=== PATIENT | male | born 1945 | race Caucasian/White ===

== ENCOUNTER 2019-02-09 01:05 | Inpatient (IN) | payer MEDICARE ==
[~2019-02-09] VITALS: Ht 172.7 cm; Wt 79.1 kg
--- NOTE | ~2019-02-09 | CON ---
[address] [address] CONSULTATION Name: DAVID SANTOS Room: [place] [address] ADM IN .R.#: [id number] Admission: 02/09/19 Attend Phys: Fredis Kwon MD Discharge: Date of : 43 Report #: [id number] THIS REPORT FOR: //name// CC: Man Carlotaliliane Kwon DATE OF SERVICE: 02/09/2019 CONSULTING PHYSICIAN: Fredis Holley M.D. REFERRING PHYSICIAN: Fredis Kwon M.D. REASON FOR CONSULTATION: Left ureteral stone. HISTORY OF PRESENT ILLNESS: This is a 73-year-old gentleman who was admitted for severe left flank pain with radiation into his left upper quadrant, has associated nausea, no vomiting, no fevers or chills. A CT scan of the abdomen and pelvis, which revealed a 7 mm proximal left ureteral stone. Urology was consulted for further evaluation. He does have a history of stones that he has passed spontaneously. It has been many years since his last stone. He is unable to control his pains with medicines at home. He has been controlling his pain with IV narcotics here in the hospital. He denies any fevers or chills. No chest pain or shortness of breath. PAST MEDICAL HISTORY: Pancreatitis, [place] with stents, kidney stones, cholecystectomy, partial knee replacement, hypertension, appendectomy, angioplasty, osteoporosis, sleep apnea, and BPH. CURRENT MEDICATIONS: Amlodipine, metoprolol, terazosin, pantoprazole, losartan, aspirin, atorvastatin, potassium chloride, and nitroglycerin. ALLERGIES: LEVAQUIN. FAMILY HISTORY: Negative for kidney stones. SOCIAL HISTORY: Denies alcohol or tobacco use. REVIEW OF SYSTEMS: See HPI. Otherwise, all 14-point review of systems otherwise reviewed and negative. PHYSICAL EXAMINATION: VITAL SIGNS: Temperature is 36.6, heart rate 82, respiratory rate 20, and blood pressure 138/90. GENERAL: He is alert and oriented x3, no apparent distress. HEENT: Normocephalic, atraumatic. NECK: [place] [address] CONSULTATION Name: DAVID SANTOS Room: [address] IN [facility]#: [id number] Admission: 02/09/19 Attend Phys: Fredis Kwon MD Discharge: Date of : 43 Report #: [id number] LUNGS: Clear. HEART: Regular rate and rhythm. ABDOMEN: Soft, nontender, nondistended. BACK: No CVA tenderness. GENITOURINARY: No palpable bladder. EXTREMITIES: No cyanosis, clubbing, edema. NEUROLOGIC: Cranial nerves 2-12 are intact. LABORATORY DATA: White count is 10.9, hemoglobin 13.9, and platelets 178. Chemistry: Sodium is 145, potassium 3.4, BUN 24, and creatinine 1.3. Urine, 2+ blood with 11-20 red blood cells per high power field, and 0-5 white blood cells per high power field. CT scan of the abdomen and pelvis: I reviewed the images. It shows an approximately 7 mm left proximal ureteral stone with hydronephrosis, multiple renal cysts, small 1-2 mm stone in left lower pole of the kidney. ASSESSMENT AND PLAN: A 7 mm left proximal ureteral stone. No sign of infection or renal failure. I reviewed the options in detail with the patient, which include medical expulsive therapy versus ESWL versus ureteroscopy. I described the different options in detail, and the risks and benefits of each. He would like to avoid ureteral stent if at all possible. He does believe that he can control his pain as an outpatient with narcotics. He would like to discharge home and undergo an outpatient ESWL if possible. I recommend obtaining a KUB to confirm the stone is visible. If it is, it would be reasonable for him to be discharged today and undergo ESWL either later this week or next week. He does take a baby aspirin. I recommend he hold that for a week prior to procedure, so we will likely set this up for early next week. If the stone is not visible on KUB, the patient is considering his options and may elect to proceed with ureteroscopy with laser lithotripsy today or tomorrow. We will go ahead and obtain a KUB and make a final plan depending on the results of that. He is undergoing cardiac workup for possible chest pain, but his chest pain has resolved and it was likely pain due to his kidney stone. Thank you for allowing us to participate in the care of this patient. By: 0733 [id number] Holley MD /radha
--- NOTE | ~2019-02-09 | CON ---
[address] [address] CONSULTATION Name: DAVID SANTOS Room: [address] IN .R.#: [id number] Admission: 02/09/19 Attend Phys: Fredis Kwon MD Discharge: 02/09/19 Date of : 43 Report #: [id number] THIS REPORT FOR: //name// CC: Man Kwon REQUESTING PHYSICIAN: Fredis Kwon MD CHIEF COMPLAINT: Chest pain, left lower quadrant pain. HISTORY OF PRESENT ILLNESS: The patient is a 73-year-old man with a history of coronary disease. He had an episode of severe left lower quadrant pain and was diagnosed with a large kidney stone. I am asked to see him because he had some pain in association with his left lower quadrant pain, which radiated up to his left chest. This occurred while he was at rest, actually woke him up out of bed. He denies exertional symptoms. He has been feeling fine prior to his diagnosis of kidney stones. He was not having exertional chest pressure or shortness of breath. It did not feel like his chest pain that he had prior to his PCI. He was admitted for observation and overall his cardiac troponin levels have been normal and his ECG was normal on presentation. PAST MEDICAL HISTORY: Significant for the following: In 2013, he had a PCI to his right coronary artery. He had in 2016 nuclear stress test, which was normal. He was followed by Dr. Norwood in our practice. It was noted that the cardiac catheterization demonstrated minimal disease in his left system. He has normal LV function. He has hypertension, hyperlipidemia. This apparently is not his first kidney stone. He is scheduled for a procedure with Dr. Holley next week. He has a history of pancreatitis, knee replacement, obstructive sleep apnea, hypertension, hyperlipidemia. HOME MEDICATIONS: Amlodipine 10 mg daily, Toprol-XL 50 mg daily, terazosin 5 mg at bedtime, Protonix 40 mg daily, losartan 100/25 mg daily, baby aspirin 81 mg, atorvastatin 20 mg daily, potassium chloride 10 mEq daily, nitroglycerin p.r.n. ALLERGIES: HE HAS ALLERGIES TO LEVOFLOXACIN. SOCIAL HISTORY: He is a nonsmoker. He is . REVIEW OF SYSTEMS: GENERAL: No fevers or chills. GENITOURINARY: Positive pain with urination, left flank pain. RENAL: No history of kidney failure, although he [place] [address] CONSULTATION Name: DAVID SANTOS ROBERTO Room: [address]#: [id number] Admission: 02/09/19 Attend Phys: Fredis Kwon MD Discharge: 02/09/19 Date of : 43 Report #: [id number] RESPIRATORY: No cough, shortness of breath. PULMONARY: No wheezing or cough. CARDIOVASCULAR: No exertional chest pressure. No exertional neck, jaw discomfort, no shortness of breath with activity. He denies weight gain or edema. HEMATOLOGIC: No anemia or bleeding disorders. SKIN: No rashes. NEUROLOGIC: Denies headaches, blurry vision or slurred speech. PHYSICAL EXAMINATION: VITAL SIGNS: On presentation, his blood pressure is 151/97, this morning his blood pressure is 121/81, pulse is 74. GENERAL: This is a pleasant elderly male who is alert, oriented, no apparent distress, sitting up in bed. HEENT: Unremarkable. Eyes are intact. No facial asymmetry. NECK: Supple. No jugular venous distention. CARDIOVASCULAR: Irregular. I cannot hear a murmur or S3. LUNGS: Clear to auscultation bilaterally. ABDOMEN: Soft, nontender. Palpation of the flank and abdominal area was unremarkable. There was no evidence of discomfort. EXTREMITIES: No peripheral edema. His resting ECG showed a sinus rhythm with normal ST segments. There is a Q-wave in lead 3 and aVF, but normal ST segments. OTHER LABORATORY DATA: His hemoglobin is 13.9, white blood cell count is 10.9, and platelet count is 178,000. Sodium is 145. Potassium was 3.4, he was replaced. Chloride was 104, CO2 is 30, BUN is 24, creatinine is 1.3. AST is 24, ALT is 30. Troponin I is 0.06 x 3 sets. BNP is 137, lipase 110. Chest x-ray shows no acute cardiopulmonary abnormality. Abdominal pelvis CT shows that there is a 5 x 7 mm proximal left ureteral dimension with moderate left hydronephrosis and a 5 x 7 millimeter mm renal stone, in the proximal left ureter. IMPRESSION AND PLAN: 1. Flank pain. This is most likely due to his left-sided ureteral calculus and subsequently referred pain to his chest pain. 2. Referred pain to his chest. His symptoms are atypical for angina. They are more likely referred pain from his acute kidney stone. He is currently asymptomatic. His ECG was unremarkable for dynamic ST-T wave abnormalities and he was ruled out for myocardial infarction. His last stress test was normal, but it was almost 2 years ago. 3. Coronary artery disease. He should probably have another stress test after his renal issues are taken care of. I gave him a prescription for nitroglycerin. He is going to have to hold his aspirin for his urologic [address] [place] [address] CONSULTATION Name: DAVID SANTOS Room: [address] IN M.R.#: [id number] Admission: 02/09/19 Attend Phys: Fredis Kwon MD Discharge: 02/09/19 Date of : 43 Report #: [id number] procedure though. For any return of chest discomfort, he is instructed to use nitroglycerin or return to the Emergency Room. 4. Hypertension. This is stable. 5. Hyperlipidemia. Continue with current medical therapy. By: 1112 1922Kvng Estrella MD, FACC /nt
[~2019-02-09 01:05] MED LIST: AMLODIPINE BESYL5 MG PO; ASPIRIN325 PO; ATENOLOL 100MG100 M2; ATORVASTATIN CA20 MG PO; ATORVASTATIN CA80 MG PO; BAYER CHEWABLE81 MG PO; CLOPIDOGREL75 MG PO; CREON DR 24,001 EACH PO; DIGESTIVE ENZY1 EAC2 PO; DIGESTIVE ENZY1 EAC3 PO; DILTIAZEM 24HR240 MG PO; HYTRIN 5 M5 MG/1 CA1 PO; HYTRIN 5 M5 MG/1 CAP PO; KLOR-CON 1010 MEQ PO; LOSARTAN-HCTZ1 EAC1; LOSARTAN-HCTZ1 EAC1 PO; MIRALAX255 GM; NITROGLYCERIN0.4 MG SL; OMEPRAZOLE20 M2 PO; PANTOPRAZOLE SO40 M1 PO; PERCOCET 5-3251 EACH; PERCOCET 5-3251 EACH PO; POTASSIUM20 PO; PRINZIDE 20-121 EACH PO; TOPROL XL50 MG PO; TRICOR145 MG PO
[2019-02-09 01:18] VITALS: BP 151/97
[2019-02-09 01:21] LABS: ABSOLUTE BASOPHILS 0.1 thou/uL (0.0-0.2); ABSOLUTE EOSINOPHILS 0.1 thou/uL (0.0-0.7); ABSOLUTE LYMPHOCYTES 1.3 thou/uL (0.8-5.3); ABSOLUTE MONOCYTES 0.8 thou/uL (0.0-1.2); ABSOLUTE NEUTROPHILS 8.6 thou/uL (1.6-8.1); BASOPHILS 0.9 %; EOSINOPHILS 0.8 %; HEMATOCRIT 39.8 % (42.0-52.0); HEMOGLOBIN 13.9 gm/dL (14.0-18.0); LYMPHOCYTES 11.9 %; MCH 31.6 pg (26.0-34.0); MCHC 34.9 g/dL (28.0-37.0); MCV 90.5 fL (80.0-100.0); MONOCYTES 7.1 %; MPV 8.3 fl. (7.2-11.1); NUCLEATED RBCS 0 /100WBC; PLATELET COUNT* 178 thou/uL (150-400); POLYS 79.3 %; RBC 4.39 mil/uL (4.50-6.00); RDW-CV 13.8 % (10.5-14.5); WBC 10.9 thou/uL (4.0-11.0)
[2019-02-09 01:45] LABS: ANION GAP 11 mmol/L (7-16); BUN 24 mg/dL (7-18); CALCIUM 9.7 mg/dL (8.5-10.1); CHLORIDE 104 mmol/L (98-107); CO2 30 mmol/L (21-32); CREATININE 1.3 mg/dL (0.6-1.3); GLUCOSE 134 mg/dL (70-99); POTASSIUM 3.4 mmol/L (3.5-5.1); SODIUM 145 mmol/L (136-145)
[2019-02-09 01:55] LABS: ALBUMIN 4.2 g/dL (3.4-5.0); ALKALINE PHOSPHATASE 59 U/L (46-116); LIPASE 110 U/L (73-393); MAGNESIUM 1.6 mg/dL (1.8-2.4); NT-PRO BRAIN NAT PEPTIDE 137 pg/mL (<300); SGOT 24 U/L (15-37); SGPT 30 U/L (30-65); TOTAL BILIRUBIN 1.1 mg/dL (<0.1-1.0); TOTAL PROTEIN 7.9 g/dL (6.4-8.2); TROPONIN-I LEVEL <0.06 ng/mL (<0.06)
[2019-02-09 04:04] LABS: URINE BILIRUBIN NEGATIVE (Negative); URINE BLOOD 2+ (Negative); URINE CLARITY CLEAR; URINE COLOR YELLOW; URINE GLUCOSE-RANDOM NEGATIVE (Negative); URINE KETONES NEGATIVE (Negative); URINE LEUKOCYTES-REFLEX NEGATIVE (Negative); URINE NITRITE-REFLEX NEGATIVE (Negative); URINE PROTEIN NEGATIVE (Negative); URINE UROBILINOGEN 0.2 E.U./dl (0.2-1.0)
[2019-02-09 04:05] VITALS: BP 133/91
[2019-02-09 04:15] VITALS: BP 138/90
[2019-02-09 04:34] LABS: SQUAMOUS 0-3 Few /LPF (0-3)
[2019-02-09 04:35] LABS: HYALINE CASTS 0-3 Few /LPF (None Seen); URINE WBC-REFLEX 0-5 Rare /HPF (0-5)
[2019-02-09 04:36] LABS: BACTERIA-REFLEX 1-9 Few /HPF (None Seen); CRYSTALS None Seen /LPF (None Seen)
--- NOTE | 2019-02-09 06:38 | NUR ---
TRANSFER AND ADMITTED FROM ED RECIEVED REPORT AND ASSUMED CARE AT 0415. SOLE BLACKER IN PLACE. VITAL SIGNS STABLE. PT IS UP ADLIB. HE HAS SOME PAIN IN THE LEFT UPPER ABD AND PRN PAIN MEDS GIVEN ORDERED. ASSESSMENT COMPLETED DISCUSSED PLAN OF CARE AND PT UNDERSTANDS. BED LOCKED AND CALL LIGHT WITHIN REACH. FALL PRECAUTIONS IN PLACE. HOURLY ROUNDING DONE AND ALL NEEDS MET. NURSING WILL CONTINUE TO MONITOR.
[2019-02-09] MEDS ORDERED: FLOMAX0.4 MG PO (11:18)
[2019-02-09] MEDS ORDERED: NORCO 5-325 TA1 EACH PO (11:19)
[2019-02-09 11:53] VITALS: BP 141/79
[2019-02-09 13:40] VITALS: BP 141/79
--- NOTE | 2019-02-09 14:01 | NUR ---
ASSUMED CARE OF PT ASSESSED AND DOCUMENTED. SEE CHART. PT D/C'D TO HOME. ALL CONSULTS OK WITH D/C. EDUCATION GIVEN RE FOLLOW-UPS. MEDICATIONS. AND DRS ORDERS. SCRIPTS GIVEN. D/C'D IV AND CARDIAC MONITER. ALL BELONGINGS PACKED UP AND LEFT WITH PT ACCOMPANIED BY STAFF AND PTS .
--- NOTE | 2019-02-10 14:27 | EKG ---
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1945 Requested By: Akin Gallagher Order Number: [id number] MD: Kvng Estrella Measurements Intervals Brinkley Rate: 97 P: 14 IL: 225 QRS: -6 QRSD: 93 T: -10 QT: 354 QTc: 450 Interpretive Statements Sinus rhythm Prolonged IL interval Left ventricular hypertrophy Borderline T abnormalities, inferior leads Compared to ECG 08/23/2015 08:31:42 Left ventricular hypertrophy now present T-wave abnormality now present Electronically Signed On 02-10-2019 14:27:23 CDT by Kvng Estrella [email or web address] <ELECTRONICALLY SIGNED> By: Kvng Estrella MD, FAC 02/10/19 1427 0112 0112 Kvng Estrella MD, FAC /EPI
== END 2019-02-09 14:10 | disposition home or self-care (01) | DRG 694 ==
LOC: M.ERS 01:05 → M.2W 02:50 → M.TBA-ER 02:50 → M.2W 04:02
PROVIDERS: Emergency Medicine Emergency Medical Services; ADMIT Internal Medicine
DX: N20.2 Calculus of kidney with calculus of ureter (principal); K86.1 Other chronic pancreatitis; I25.119 Atherosclerotic heart disease of native coronary artery with unspecified angina pectoris; E78.5 Hyperlipidemia, unspecified; I10 Essential (primary) hypertension; Z96.659 Presence of unspecified artificial knee joint; M81.0 Age-related osteoporosis without current pathological fracture; N40.0 Benign prostatic hyperplasia without lower urinary tract symptoms; G47.33 Obstructive sleep apnea (adult) (pediatric); I25.2 Old myocardial infarction; Z95.5 Presence of coronary angioplasty implant and graft; Z87.442 Personal history of urinary calculi; Z90.49 Acquired absence of other specified parts of digestive tract; Z79.899 Other long term (current) drug therapy; Z79.82 Long term (current) use of aspirin; Z88.8 Allergy status to other drugs, medicaments and biological substances

== ENCOUNTER 2019-02-11 14:32 | Inpatient (IN) | payer MEDICARE ==
[~2019-02-11] VITALS: Ht 172.7 cm; Wt 77.1 kg
[~2019-02-11 14:32] MED LIST changes: +FLOMAX0.4 MG PO; +NORCO 5-325 TA1 EACH PO
[2019-02-11 14:58] LABS: URINE BILIRUBIN NEGATIVE (Negative); URINE BLOOD 3+ (Negative); URINE CLARITY CLEAR; URINE COLOR YELLOW; URINE GLUCOSE-RANDOM NEGATIVE (Negative); URINE KETONES NEGATIVE (Negative); URINE LEUKOCYTES NEGATIVE (Negative); URINE NITRITE NEGATIVE (Negative); URINE PROTEIN NEGATIVE (Negative); URINE SPECIFIC GRAVITY 1.015 (1.005-1.030); URINE UROBILINOGEN 0.2 E.U./dl (0.2-1.0)
[2019-02-11 15:08] LABS: ABSOLUTE BASOPHILS 0.1 thou/uL (0.0-0.2); ABSOLUTE EOSINOPHILS 0.1 thou/uL (0.0-0.7); ABSOLUTE LYMPHOCYTES 1.1 thou/uL (0.8-5.3); ABSOLUTE MONOCYTES 0.7 thou/uL (0.0-1.2); ABSOLUTE NEUTROPHILS 8.1 thou/uL (1.6-8.1); BASOPHILS 0.6 %; EOSINOPHILS 1.2 %; HEMATOCRIT 41.1 % (42.0-52.0); HEMOGLOBIN 14.1 gm/dL (14.0-18.0); LYMPHOCYTES 10.9 %; MCH 31.5 pg (26.0-34.0); MCHC 34.3 g/dL (28.0-37.0); MCV 91.7 fL (80.0-100.0); MONOCYTES 6.6 %; MPV 7.9 fl. (7.2-11.1); NUCLEATED RBCS 0 /100WBC; PLATELET COUNT* 175 thou/uL (150-400); POLYS 80.7 %; RBC 4.48 mil/uL (4.50-6.00); RDW-CV 13.5 % (10.5-14.5)
[2019-02-11 15:14] LABS: CALCIUM 9.7 mg/dL (8.5-10.1); CREATININE 1.8 mg/dL (0.6-1.3); POTASSIUM 3.4 mmol/L (3.5-5.1)
[2019-02-11 15:16] LABS: BACTERIA 1-9 Few /HPF (None Seen); CASTS None Seen /LPF (None Seen); CRYSTALS None Seen /LPF (None Seen); SQUAMOUS NONE SEEN /LPF (0-3); URINE RBC >20 Many /HPF (0-2); URINE WBC 0-5 Rare /HPF (0-5)
[2019-02-11 15:18] LABS: ALBUMIN 4.2 g/dL (3.4-5.0); TOTAL BILIRUBIN 1.1 mg/dL (<0.1-1.0); TOTAL PROTEIN 8.4 g/dL (6.4-8.2)
[2019-02-11 16:29] VITALS: BP 140/86
[2019-02-11 17:08] VITALS: BP 143/91
--- NOTE | 2019-02-11 17:16 | NUR ---
PT ADMITTED TO UNIT WITH LT KIDNEY STONE. PT IS ALERT AND ORIENTED. PT IS ON ROOM AIR. PULSES 2+ IN ALL EXTREMITIES. PT IS UP AD ESTEBAN. RT AC IV WITH NS AT 100. HEART HEALTHY DIET ORDERED. UROLOGY CONSULTED. FALL RISK PRECAUTIONS IN PLACE. WILL CONTINUE TO MONITOR.
--- NOTE | 2019-02-11 17:42 | NUR ---
PT REMAINED ALERT AND ORIENTED. STRAIN URINE. KUB X-RAY ORDERED. UROLOGY WILL SEE PT IN THE MORNING. FALL RISK PRECAUTIONS IN PLACE. HOURLY ROUNDING COMPLETED. WILL CONTINUE TO MONITOR.
[2019-02-11] MEDS ORDERED: FLOMAX0.4 MG PO (18:56)
[2019-02-11 20:15] VITALS: BP 139/88
--- NOTE | 2019-02-11 20:20 | NUR ---
PT AND AT BEDSIDE DO NOT WISH DNR STATUS AT THIS TIME. UPON THINKING ABOUT IT THEY CHANGED THEIR MINDS, WILL DISCUSS IT MORE WITH DR AND CM TOMORROW THEY STATE.
[2019-02-12 04:03] LABS: HEMATOCRIT 39.4 % (42.0-52.0); HEMOGLOBIN 13.3 gm/dL (14.0-18.0); MCH 31.1 pg (26.0-34.0); MCHC 33.8 g/dL (28.0-37.0); MCV 91.8 fL (80.0-100.0); MPV 7.7 fl. (7.2-11.1); NUCLEATED RBCS 0 /100WBC; PLATELET COUNT* 169 thou/uL (150-400); RBC 4.29 mil/uL (4.50-6.00); RDW-CV 13.2 % (10.5-14.5); WBC 11.5 thou/uL (4.0-11.0)
[2019-02-12 04:16] LABS: CALCIUM 9.6 mg/dL (8.5-10.1); CREATININE 1.7 mg/dL (0.6-1.3); MAGNESIUM 2.2 mg/dL (1.8-2.4); POTASSIUM 4.2 mmol/L (3.5-5.1)
--- NOTE | 2019-02-12 05:15 | NUR ---
PT AWAKE MUCH OF THE NIGHT, UP TO THE BATHROOM PASSING GAS AND FINALLY A LOOSE BM THIS MORNING HE STATES AFTER RECEIVING SENNA AND LACTULOSE AT HS. HYDROCODONE 1 TAB GIVEN OVERNIGHT FOR CO ABD AND FLANK PAIN WITH GOOD RESULT. ZOFRAN GIVEN X1 THIS MORNING FOR NAUSEA WITHOUT EMESIS. RAC IVF INFUSING PER PUMP. UP AD ESTEBAN IN ROOM TO BR. PT STATES VOIDING WELL, STRAINING URINE BUT NO SEDIMENT OBSERVED THIS SHIFT. HAS BEEN NPO EXCEPT MED WITH SIP OF WATER SINCE MIDNIGHT. ROOM AIR. UROLOGY TO SEE TODAY. AM LABS DRAWN. AOX4, PLEASANT AND COOPERATIVE. ABLE TO USE CALL LITE AND MAKE NEEDS KNOWN.
[2019-02-12 07:30] VITALS: BP 122/79
[2019-02-12 07:53] LABS: ABSOLUTE EOSINOPHILS 0.2 thou/uL (0.0-0.7); ABSOLUTE LYMPHOCYTES 1.7 thou/uL (0.8-5.3); ABSOLUTE MONOCYTES 0.8 thou/uL (0.0-1.2); ABSOLUTE NEUTROPHILS 8.7 thou/uL (1.6-8.1); PLATELET ESTIMATE ADEQUATE
--- NOTE | 2019-02-12 12:55 | EKG ---
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1945 Requested By: Marylou Kim Order Number: [id number] MD: Imtiaz German Measurements Intervals Huntley Rate: 103 P: 23 OH: 218 QRS: -7 QRSD: 88 T: -9 QT: 336 QTc: 440 Interpretive Statements Sinus tachycardia Prolonged OH interval Abnormal R-wave progression, early transition Left ventricular hypertrophy, bivoltage Compared to ECG 02/09/2019 01:12:24 Sinus rhythm no longer present T-wave abnormality no longer present Electronically Signed On 02-12-2019 12:55:24 CDT by Imtiaz German [email or web address] <ELECTRONICALLY SIGNED> By: Imtiaz German MD, FAC 02/12/19 1255 1517 1517 Imtiaz German MD, [facility] /EPI
--- NOTE | 2019-02-12 14:46 | NUR ---
PT.SITTING ON SIDE OF BED. HE WAS ALERT AND ORIENTED. HE SAID HE LIVES WITH HIS ,JASPAL. HE IS INDEPENDENT AT HOME. STILL DRIVES. ONLY DME IS A CPAP. HE DOES NOT USE O2 WITH IT. HE HAS A DPOA WHICH IS HIS AND COPY ON CHART.
--- NOTE | 2019-02-12 16:03 | NUR ---
PATIENT GIVEN PRN HYDROCODONE FOR LEFT FLANK PAIN, PATIENT STATED THAT 2 TABS GAME HIM BETTER RELIEF THAN 1 TAB. UP TO SHOWER THIS AM. IV REPLACED VIA US TO LEFT FOREARM THIS AFTERNOON, IVF CONT TO INFUSE. PATIENT TO BE NPO AFTER MIDNIGHT FOR SURGERY WITH UROLOGY TOMORROW. PATIENT AND SPOUSE NOTIFIED OF PLAN OF CARE. NEELA FLUID DESIGNER FROM UROLOGY NOTIFIED THAT RENAL US AND KUB RESULTS AVAILABLE, STATED SHE WOULD LOOK AT THEM. DR. SHIN NOTIFIED OF RESULTS AND RESULTS OF BLADDER SCAN, NO NEW ORDERS RECEIVED. URINE CONTINUES TO BE STRAINED.
[2019-02-12 16:42] VITALS: BP 122/80
[2019-02-12 19:40] VITALS: BP 134/84
[2019-02-12 23:23] VITALS: BP 134/84
[2019-02-13 04:00] VITALS: BP 173/84
[2019-02-13 04:34] LABS: ABSOLUTE EOSINOPHILS 0.3 thou/uL (0.0-0.7); ABSOLUTE LYMPHOCYTES 1.5 thou/uL (0.8-5.3); ABSOLUTE MONOCYTES 0.8 thou/uL (0.0-1.2); ABSOLUTE NEUTROPHILS 6.2 thou/uL (1.6-8.1); BASOPHILS 0.4 %; EOSINOPHILS 3.6 %; HEMATOCRIT 33.4 % (42.0-52.0); HEMOGLOBIN 11.4 gm/dL (14.0-18.0); LYMPHOCYTES 17.2 %; MCH 31.5 pg (26.0-34.0); MCHC 34.2 g/dL (28.0-37.0); MCV 92.2 fL (80.0-100.0); MONOCYTES 8.8 %; MPV 7.9 fl. (7.2-11.1); NUCLEATED RBCS 0 /100WBC; PLATELET COUNT* 142 thou/uL (150-400); RBC 3.62 mil/uL (4.50-6.00); RDW-CV 13.4 % (10.5-14.5); WBC 8.9 thou/uL (4.0-11.0)
--- NOTE | 2019-02-13 04:53 | NUR ---
PT SLEPT MUCH BETTER TONIGHT, RECEIVED PO PAIN MED AT HS WITH GOOD RELIEF OF L FLANK PAIN. UP AD ESTEBAN TO BR TO VOID WITHOUT DIFFICULTY. STRAINING URINE WITHOUT ANY SEDIMENT FOUND. HAS BEEN NPO SINCE MIDNIGHT FOR UROLOGY PROCEDURE THIS MORNING. LFA IVF INFUSING PER PUMP WITHOUT DIFFICULTY. RASH NOTED TO RAC FROM PREVIOUS TAPE PT STATES. AM LABS. ABLE TO USE CALL LITE AND MAKE NEEDS KNOWN.
[2019-02-13 05:02] LABS: CALCIUM 8.5 mg/dL (8.5-10.1); CREATININE 1.9 mg/dL (0.6-1.3); POTASSIUM 3.3 mmol/L (3.5-5.1)
[2019-02-13 06:18] VITALS: BP 168/91
[2019-02-13 09:54] VITALS: BP 156/86
--- NOTE | 2019-02-13 09:57 | NUR ---
PT RETURNED FROM SURGERY, ALERT AND ORIENTED, ON ROOM AIR. PULSES 2+ IN ALL EXTREMITIES. PT HAS NOT VOIDED AT THIS TIME. DENIES PAIN OR N/V. UROLOGY SIGNED OFF. FALL RISK PRECAUTIONS IN PLACE. HOURLY ROUNDING COMPLETED. WILL CONTINUE TO MONITOR.
--- NOTE | 2019-02-13 17:14 | NUR ---
PT REMAINED ALERT AND ORIENTED. PT RESING IN ROOM. PT DENIES ANY PAIN OR N/V. PT URINATING. SOME BLOODY DISCHARGE. PT WOULD LIKE MINIMAL INTERUPTION FOR OPTIMAL SLEEP. FALL RISK PRECAUTIONS IN PLACE. HOURLY ROUNDING COMPLETED. WILL CONTINUE TO MONITOR.
[2019-02-13 17:16] VITALS: BP 130/71
[2019-02-13 20:15] VITALS: BP 150/75
--- NOTE | 2019-02-14 03:43 | NUR ---
ASSUMED CARE FROM DAY SHIFT PT UP IN ROOM WITH NO CONCERNS VOICED DISCUSSED PLAN OF CARE AND AGREEABLE, VOIDING WITHOUT DIFF. RESTED WELL THROUGHOUT HOURLY ROUNDS, NO CHANGES NOTED, WILL REPORT CHANGES OR ABNORMAL FINDINGS
[2019-02-14 07:35] VITALS: BP 149/77
[2019-02-14 11:35] VITALS: BP 149/77
[2019-02-14 13:16] LABS: CALCIUM 8.7 mg/dL (8.5-10.1); POTASSIUM 3.3 mmol/L (3.5-5.1)
[2019-02-14] MEDS ORDERED: BACTRIM DS TAB1 EACH PO (14:14)
[2019-02-14] MEDS ORDERED: FLOMAX0.4 MG PO (14:14)
[2019-02-14 14:18] VITALS: BP 149/77
[2019-02-14 15:26] VITALS: BP 149/77
--- NOTE | 2019-02-14 15:26 | NUR ---
PT BELONGINGS GATHERED. IV REMOVED. FALL RISK PRECAUTIONS IN PLACE. PRESCRIPTIONS GIVEN, CARE NOTES, AND DISCHARGE PACKET GIVEN. HOURLY ROUNDING COMPLETED. PT LEFT WITH NURSING STAFF TO HOME.
--- NOTE | 2019-02-17 16:23 | OP ---
[address] [address] OPERATIVE REPORT Name: DAVID SANTOS Room: [address] IN .R.#: [id number] Admission: 02/11/19 Attend Phys: Nat Larsen MD Discharge: 02/14/19 Date of : 43 Report #: [id number] THIS REPORT FOR: //name// CC: Man Larsen DATE OF SERVICE: 02/13/2019 INDICATIONS FOR PROCEDURE: The patient is a 73-year-old gentleman who was seen through the Emergency Department with severe left-sided flank pain. Evaluation revealed a 5 x 7 mm left proximal ureteral calculus, which was poorly seen on plain x-rays, but well seen on CT scan. Due to azotemia, uncontrolled pain and nausea, and after discussing all risks and benefits, he elected to undergo ureteroscopic stone extraction with laser lithotripsy. PREOPERATIVE DIAGNOSIS: Large left proximal ureteral calculus. POSTOPERATIVE DIAGNOSIS: Large left proximal ureteral calculus. PROCEDURE: Cystoscopy, left retrograde pyelogram, left ureteroscopic stone extraction with holmium laser lithotripsy, left double-J stent placement. SURGEON: Nico Carter MD ANESTHESIA: General. COMPLICATIONS: None. ESTIMATED BLOOD LOSS: Minimal. DESCRIPTION OF PROCEDURE: The patient was consented for the above procedure. He was given broad spectrum IV antibiotics preoperatively. He was given general anesthetic and placed in a dorsal lithotomy position. He was prepped and draped in the usual sterile fashion over the genitalia. Cystoscopy was performed with a 21-Telugu sheath and 30-degree lens, which revealed mild meatal stenosis and a mildly tortuous urethra with moderate bilobar hyperplasia of the prostate that was partially obstructing. Examination of the bladder itself revealed no stones, ulcerations or tumors. Ureteral orifices were easily identified in the proper position. The stone was not seen on fluoroscopy. Based on that a 5-Telugu Pollack catheter was used to perform a left retrograde pyelogram, which revealed tortuous ureter throughout. A filling defect was noted in the mid ureter consistent with the stone seen on CT scan. Mild hydronephrosis was noted above that. Based on that, 0.035 floppy tipped guidewire was passed up the left ureter under fluoroscopic guidance without difficulty. Next, the cystoscope was removed leaving the wire in place. I then attempted to pass the rigid ureteroscope with some difficulty due to mild narrowing of the distal ureter, [place] [id number] OPERATIVE REPORT Name: DAVID SANTOS Room: [address] IN [facility]#: [id number] Admission: 02/11/19 Attend Phys: Nat Larsen MD Discharge: 02/14/19 Date of : 43 Report #: [id number] I used the trocar for the ureteral access sheath where general ureteral dilation under fluoroscopic guidance without difficulty. Next, the ureteroscope was replaced and I was able to easily drive past the distal ureter up the ureter. The ureter was relatively tortuous, but a fairly wide caliber and I was able to drive all the way up to the mid ureter where the stone was identified. This initially appeared to be a uric acid stone and it was fairly large. I then used a 200 micron holmium laser to fragment the stone, and as I fragmenting the stone, we could see a calcium nidus surrounded by uric acid. The stone broke readily and then the 0-tip Nitinol stone basket was used to remove all the larger fragments, which were deposited into the bladder. Small fragments were left behind, but should all be passable in size. Once I was comfortable that all the large stones were removed from the ureter, I removed the ureteroscope. The cystoscope was then backloaded over the guidewire and a 4.8 x 28 double-J stent was passed over the wire with good curl noted in the renal pelvis and in the bladder after removing the wire. This was confirmed with fluoroscopy and cystoscopy. Stone fragments were then removed from the bladder, it will be sent off for stone analysis. The bladder was drained, scope was removed and lidocaine gel was placed per urethra for local anesthesia. The patient tolerated the procedure very well. He was awakened and sent to recovery room. He remained in stable condition. <ELECTRONICALLY SIGNED> By: Bijan Kim MD 02/17/19 1623 0834 [id number] Carter MD /nt
== END 2019-02-14 15:32 | disposition home or self-care (01) | DRG 660 ==
LOC: M.ERS 14:32 → M.ORTHSURG 15:40 → M.TBA-ER 15:40 → M.ORTHSURG 16:31
PROVIDERS: Internal Medicine; Nurse Practitioner Family; ADMIT Family Medicine
PROC: 0TC78ZZ Extirpation of Matter from Left Ureter, Via Natural or Artificial Opening Endoscopic (ICD-10-PCS; principal; 2019-02-11)
PROC: BT1F1ZZ Fluoroscopy of Left Kidney, Ureter and Bladder using Low Osmolar Contrast (ICD-10-PCS; principal; 2019-02-11)
PROC: 0T778DZ Dilation of Left Ureter with Intraluminal Device, Via Natural or Artificial Opening Endoscopic (ICD-10-PCS; principal; 2019-02-11)
DX: N13.2 Hydronephrosis with renal and ureteral calculous obstruction (principal); K86.1 Other chronic pancreatitis; N17.0 Acute kidney failure with tubular necrosis; Z96.659 Presence of unspecified artificial knee joint; M81.0 Age-related osteoporosis without current pathological fracture; N18.3 Chronic kidney disease, stage 3 (moderate); I25.10 Atherosclerotic heart disease of native coronary artery without angina pectoris; K59.00 Constipation, unspecified; I12.9 Hypertensive chronic kidney disease with stage 1 through stage 4 chronic kidney disease, or unspecified chronic kidney disease; N40.0 Benign prostatic hyperplasia without lower urinary tract symptoms; R31.29 Other microscopic hematuria; H00.011 Hordeolum externum right upper eyelid; E87.6 Hypokalemia; I25.2 Old myocardial infarction; Z90.49 Acquired absence of other specified parts of digestive tract; Z95.5 Presence of coronary angioplasty implant and graft; Z88.1 Allergy status to other antibiotic agents; Z79.899 Other long term (current) drug therapy

== ENCOUNTER → 2019-04-22 | Outpatient (CLI) | payer MEDICARE ==
[~2019-04-22] MED LIST changes: +BACTRIM DS TAB1 EACH PO
[2019-04-22 15:42] LABS: CALCIUM 9.3 mg/dL (8.5-10.1); POTASSIUM 3.6 mmol/L (3.5-5.1)
== END ==
LOC: M.LAB 15:10
PROVIDERS: Nurse Practitioner
DX: E87.6 Hypokalemia (principal)

== ENCOUNTER → 2019-05-07 | Outpatient (CLI) | payer MEDICARE ==
--- NOTE | 2019-05-08 17:02 | CARDNUC ---
[place] [address] CARDIAC NUCLEAR IMAGING REPORT Name: DAVID SANTOS Room: [facility]#: [id number] Admission: 05/07/19 Attend Phys: Mamadou Norwood, Discharge: Date of : 43 Date of Service: 05/08/19 1701 Report #: [id number] THIS REPORT FOR: //name// APPROVED REPORT Study performed: 05/07/2019 09:34:39 Exam: Nuclear Stress Test Indication: CAD Patient Location: Out-Patient Stress Tech: Amna Pugh Stress Nurse: Keeley WELCH Tech:RD Kitchen Ht: 5 ft 8 in Wt: 172 lbs BSA: 1.92 m2 BMI: 26.14 Rhythm: NSR Medical History Medications: amlodipine, losartan, metoprolol, ASA, statin, Allergies: levaquin Cardiac Risk Factors: age, HLP, HTN Previous Cardiac Procedures: PCI Meds Held (24 hrs): metoprolol Stress Test Details Stress Test: Exercise stress testing was performed using a Jairo protocol. HR Resting HR: 96 bpm Max Heart Rate (APMHR): 146 bpm Max HR Achieved: 152 bpm Target HR (85% APMHR): 124 bpm % of APMHR: 104 Recovery HR: 92 bpm HR response to stress: Normal HR response to stress BP Resting BP: 134/61 mmHg Max BP: 150/79 mmHg BP response to stress: Normal blood pressure response to stress. ECG Resting ECG: Sinus Rhythm, normal EKG Stress ECG: Sinus Rhythm, [place] [address] CARDIAC NUCLEAR IMAGING REPORT Name: DAVID SANTOS Room: [facility]#: [id number] Admission: 05/07/19 Attend Phys: Mamadou Norwood, Discharge: Date of : 43 Date of Service: 05/08/19 1701 Report #: [id number] Change: None Maximum ST Deviation: 0 mm Arrhythmia: VPC's Recovery ECG: Sinus Rhythm, normal EKG Recovery ST Change: None Recovery ST Deviation: 0 mm Recovery Arrhythmia: VPC Clinical Reason for Termination: pt request Stress Symptoms: none Exercise duration: 7 min 12 sec Exercise capacity: 8.89 METs Overall Exercise Capacity for Age: normal Stress ECG Conclusion ECG: Non-ischemic Clinical: Non-ischemic NM EXAM: Myocardial Perfusion REST/STRESS Imaging Protocol: Rest Tc-99m/Stress Tc-99m 1 day Resting Data Rest SPECT myocardial perfusion imaging was performed in supine position 30 minutes following the intravenous injection of 10.3 mCi of Tc-99m Sestamibi. Time of rest injection: 804 Date: 05/07/2019 The images were gated to evaluate regional wall motion and calculate left ventricular ejection fraction. Administration Route: IV Administration Site: Left AC Exercise Stress At peak stress, the patient was injected intravenously with 34.5mCi of Tc-99m Sestamibi. Time of stress injection: 934 Date: 05/07/2019 Administration Route: IV Administration Site: Left AC Gated Stress SPECT was performed 30 minutes after stress injection. The images were gated to evaluate regional wall motion and calculate left ventricular ejection fraction. Prone imaging was performed. Study Quality Study: [place] [address] CARDIAC NUCLEAR IMAGING REPORT Name: DAVID SANTOS Room: [facility]#: [id number] Admission: 05/07/19 Attend Phys: Mamadou Norwood, Discharge: Date of : 43 Date of Service: 05/08/19 1701 Report #: [id number] Artifact: Mild Diaphragmatic artifact Lung Uptake: Normal Study Data At rest, the left ventricular ejection fraction was 69%.. Post stress, the left ventricular ejection was 74%.. TID = 0.77. Perfusion The resting study demonstrates a small mild apical defect and a small mild inferior defect as well as a small mild septal defect. The stress images are unchanged from those seen at rest are as previously described. The prone images demonstrate a small mild apical defect and a small mild septal defect. There are no reversible defects seen is no evidence of myocardial ischemia. Images were reviewed using [employer]. Wall Motion Normal left ventricular wall motion. Nuclear Conclusion ECG Findings: negative for ischemia Clinical Findings: negative for ischemia Nuclear Findings: negative for ischemia Exercise Capacity: normal Left Ventricular Function: normal Risk Study: low The exercise Cardiolite stress test demonstrates low probability for myocardial ischemia, overall this is a low risk study. <Conclusion> ECG: Non-ischemic Clinical: Non-ischemic <ELECTRONICALLY SIGNED> By: Mamadou Norwood MD, FACC 05/08/191700 00 00 Mamadou Norwood MD, FACC /INF
== END ==
LOC: M.NUC 04-22 16:36
DX: I25.10 Atherosclerotic heart disease of native coronary artery without angina pectoris (principal); I10 Essential (primary) hypertension; E78.5 Hyperlipidemia, unspecified

== ENCOUNTER → 2020-11-07 | Outpatient (CLI) | payer MEDICARE | LOC: M.LAB 08:25 | PROVIDERS: ATTEND Orthopaedic Surgery | DX: Z01.812 Encounter for preprocedural laboratory examination (principal); Z20.822 Contact with and (suspected) exposure to COVID-19; M65.311 Trigger thumb, right thumb ==